=== PATIENT | female | born 1995 | race Caucasian/White ===

== ENCOUNTER 2023-01-09 09:52 | Outpatient (REF) | payer MEDICAID, SELFPAY ==
[2023-01-09 12:02] LABS: HBS Num1 36.32 mIU/mL (0-7.99); HBc Num1 0.11 S/CO (0.00-0.79); HBsAGNum1 0.29 S/CO (0.00-0.99); HIV AB/AG Nonreactive (Nonreactive); HIV Num 1 0.06 S/CO (0.00-0.99); Hepatitis A Antibody IgM 0.21 Index (0-0.79); Hepatitis B Core Antibody Nonreactive (Nonreactive); Hepatitis B Surface Antigen Negative (Negative); Syphilis Screen Nonreactive (Nonreactive); ~HepC Num1 1.19 S/CO (0.00-0.79); ~Hepatitis A Antibody IgM Nonreactive (Nonreactive); ~Hepatitis B Surface Antibody REACTIVE (Nonreactive); ~Hepatitis C Antibody Reactive (Nonreactive)
[2023-01-09 13:55] LABS: CT PCR NOT DETECTED (Not Detect.); NG PCR NOT DETECTED (Not Detect.)
== END 2023-01-09 09:53 | disposition home or self-care (01) ==
LOC: HO.HHCL 09:52
PROVIDERS: Visit Provider Emergency Medicine
DX: Z11.3 Encounter for screening for infections with a predominantly sexual mode of transmission (principal)
CPT/HCPCS: 0353U; 86704; 86706; 86709; 86780; 86803; 87340; 87389

== ENCOUNTER 2023-07-24 09:55 | Outpatient (AMB) | payer SELFPAY ==
[2023-07-24 10:01] VITALS: BP 110/60; BMI 25.4
--- NOTE | 2023-07-24 10:01 | MHC.OFFVIS ---
Vital Signs 07/24/23 10:01 Height 5 ft 2 in Weight 139 lb BMI 25.4 BP 110/60 Intake Visit Reasons: AND [employer] annual exam [employer] Required: No Information Interpreted: clinical only Software Testing Specialist: Software Testing Specialist Present Allergies No Known Allergies Allergy (Verified 07/24/23 10:03) Is last menstrual period known: Yes Last menstrual period: 07/21/23 HPI HPI [employer] annual exam: Details: Arrived at the window with a letter stating she had an appointment for today. Search of records reveals that her appointment was canceled yesterday because her insurance was not active however it is active today she apparently was referred here by her history by a new primary care provider who has since left the [facility]. She says she always has come to the [facility] for primary care but she has gone to [facility] for OB care and also to various emergency rooms for ship/rec/doc control care of her Bartholin's cysts and also periodic evaluations for pain especially in the right side that turns out to have been ?ruptured ovarian cysts. They usually have rupture by the time they are seen the largest 1 that was ever seen on an ultrasound was a quarter-sized. She says she normally gets sent to ultrasound in [place] at [facility] ultrasound, but she has also been seen at [facility] Emergency room and had an ultrasound there most recently in June for her ruptured ovarian cyst. She has also been [facility] and had a Bartholin's cyst lanced she has a Mirena IUD that was inserted here at the [facility] by a provider she has not sure who. She has a history of delivering 1 child at [facility] she had broken her water and got an infection so she and the baby both had an infection and she also had a problem with the epidural and needed a blood patch after thereafter she and the baby had to stay but just for 4 days . She had a Nexplanon placed at [facility] and she bled for 4 months so she had it taken out and put in the Mirena here at the [facility] instead she does prefer the Mirena. She had had a Nexplanon previous to that and had had a good experience with it and her. Had gone away so she was expecting that again and it did not happen so now she is happier with the Mirena however she still gets the recurring ovarian cysts and at [facility] they wanted to give her control pills but she did not want them because she did not want to be on 2 methods of control at the same time so she says she had no follow-up after that because she refused the pills. She was hoping for yet another opinion from what she had been told at [facility] and and the [facility] for how to manage her ovarian cysts she says that they have questioned whether not she had polycystic ovarian syndrome but she said that it did not appear that way according to the ultrasounds according to the providers that all reviewed them. She does get some facial hair but she plucks it she is not overweight she had irregular periods before she started on control pills as a 16-year-old but at the most she would be maybe a month late, the periods were heavy. [facility] Medical History (Updated 07/24/23 @ 11:13 by Alexandra Casas CNM) Gallbladder abscess Family History (Updated 07/24/23 @ 10:06 by Paula Turk CMA) Father Diabetes HTN (hypertension) Mother Diabetes HTN (hypertension) High cholesterol Maternal Aunt Ovarian cancer Social History (Updated 07/24/23 @ 10:08 by Paula Turk CMA) Alcohol intake: current Alcohol intake frequency: holidays/special occasions only Patient Tobacco Use Status: Never used Tobacco Substance Use Type: Marijuana Substance Use Frequency: Occasionally Female Reproductive History Menstrual Age of Menarche: 11 Duration of menses: 3-5 days Date of last menstrual period: 07/21/23 control method: progestin IUCD Total pregnancies: 1 Full term: 1 Date of last pap smear: 05/01/23 (negative) History of abnormal pap smear: No Physical Exam Vital Signs: Last Vital Signs BP 110/60 07/24/23 10:01 BMI result Body Mass Index 25.4 Other: abdomen palpated, soft, nontender pt cites very sl tenderness on both sides , right more than left. Assessment & Plan Assessment & Plan (1) History of ovarian cyst: Code(s): Z87.42 - Personal history of other diseases of the female genital tract Category: Medical (2) Presence of 52 mg levonorgestrel-releasing intrauterine device (IUD): Comment: Patient states it was inserted at [facility] 3 years ago... Code(s): Z97.5 - Presence of (intrauterine) contraceptive device Category: Medical Plan Arrived at the window with a letter stating she had an appointment for today. Search of records reveals that her appointment was canceled yesterday because her insurance was not active however it is active today she apparently was referred here by her history by a new primary care provider who has since left the [facility]. She says she always has come to the [facility] for primary care but she has gone to [facility] for OB care and also to various emergency rooms for ship/rec/doc control care of her Bartholin's cysts and also periodic evaluations for pain especially in the right side that turns out to have been ?ruptured ovarian cysts. They usually have rupture by the time they are seen the largest 1 that was ever seen on an ultrasound was a quarter-sized. She says she normally gets sent to ultrasound in [place] at [facility] ultrasound, but she has also been seen at [facility] Emergency room and had an ultrasound there most recently in June for her ruptured ovarian cyst. She has also been seen [facility] and had a Bartholin's cyst lanced she has a Mirena IUD that was inserted here at the [facility] by a provider she has not sure who. She has a history of delivering 1 child at [facility] she had broken her water and got an infection so she and the baby both had an infection and she also had a problem with the epidural and needed a blood patch after thereafter she and the baby had to stay but just for 4 days . She had a Nexplanon placed at [facility] and she bled for 4 months so she had it taken out and put in the Mirena here at the [facility] instead she does prefer the Mirena. She had had a Nexplanon previous to that and had had a good experience with it and her. Had gone away so she was expecting that again and it did not happen so now she is happier with the Mirena however she still gets the recurring ovarian cysts and at [facility] they wanted to give her control pills but she did not want them because she did not want to be on 2 methods of control at the same time so she says she had no follow-up after that because she refused the pills. She was hoping for yet another opinion from what she had been told at [facility] and and the [facility] for how to manage her ovarian cysts she says that they have questioned whether not she had polycystic ovarian syndrome but she said that it did not appear that way according to the ultrasounds according to the providers that all reviewed them. She does get some facial hair but she plucks it she is not overweight she had irregular periods before she started on control pills as a 16-year-old but at the most she would be maybe a month late, the periods were heavy. I reviewed all of what she has told me patient had expected that there were records here however there are 0 records available to me today. If they have been reviewed it is not apparent to this provider today and there is nothing in the system that is visible to me. I shared this with the patient I also shared that it was probably not the best thing to be bouncing from 1 care provider to another although it is understandable when 1 having pain to try and seek out another possible answer in reviewing simply what the patient has shared with me I shared that it sounded like all of the possible avenues for investigating her recurrences of ovarian cysts have been reasonable and it indeed the possible ways of managing them have also been reasonable and are in fact what would of been considered in most settings. I reviewed her self-care as regards trying to prevent recurrences of the Bartholin cysts and shared with her that that is not something that I manage either and that I do not lanced them that is what is required and do not have surgical skills that sometimes are required to manage them as well she is doing her best to not be overweight and manage her weight and she wears no one these at night and allows air to get to that area which is a useful thing and avoiding perspiration. Follow-up at this point would be up to her and when she feels she needs to be seen or evaluated and to make her best efforts so that any records are sent to wear of her she is going and that telephone numbers are up-to-date apparently she had changed her number from the time the appointment got made until yesterday and we were not apprised of her new phone number. I shared that if the Mirena is working for her then she can continue to use that for between 5 and 8 years total and she might want to consider replacing it if her periods return to normal pre Mirena menses. She says she had a Pap smear about 2 months ago with her primary care provider here at the [facility] so she has not due for that and she had no concerns whatsoever about infections and so did not need any exam for that as well. Palpation of her abdomen externally revealed no acute tenderness though she says she is always a little bit tender on the right side and that is chronic but it gets worse at times. Follow-up will be p.r.n. at her discretion. She may consider continuing all of her ship/rec/doc control care here at the [facility] with whoever she has been seeing. I shared with her that I did not think any of her management thus far was unreasonable in any way. From her description it appeared that many avenues and questions had been considered already. Coding Level of Care Code New Pt Level 3 (79376) Diagnoses History of ovarian cyst Z87.42 Presence of 52 mg levonorgestrel-releasing intrauterine device (IUD) Z97.5 Time Spent (min) 60 Comment 100% exploring patient's history great detail and reviewing her management.
== END 2023-07-24 10:56 | disposition home or self-care (01) ==
PROVIDERS: PCP Internal Medicine; Visit Provider Advanced Practice Midwife
DX: Z87.42 Personal history of other diseases of the female genital tract (principal); Z97.5 Presence of (intrauterine) contraceptive device
CPT/HCPCS: 99203

== ENCOUNTER → 2023-07-24 09:55 | Outpatient (BNVA) | payer MEDICAID, SELFPAY | PROVIDERS: PCP Internal Medicine; Visit Provider Advanced Practice Midwife | DX: Z87.42 Personal history of other diseases of the female genital tract (principal); Z97.5 Presence of (intrauterine) contraceptive device | CPT/HCPCS: 99202 ==